=== PATIENT | female | born 1970 | race Caucasian/White ===

== ENCOUNTER → 2020-01-14 09:22 | Outpatient (CLI) | payer BC, OTHER, SELFPAY ==
--- NOTE | ~2020-01-14 | MM_ITS ---
EXAMINATION: MM screening meghann BI w ivy HISTORY: Screening mammogram TECHNIQUE: Craniocaudal and mediolateral oblique 3-D tomosynthesis images were obtained and synthetic 2-D images were generated. CAD analysis was submitted and interpreted. COMPARISON: 04/30/2018 bilateral digital screening mammogram BREAST PARENCHYMAL COMPOSITION: There are scattered areas of fibroglandular density. FINDINGS: There is no evidence of suspicious mass, calcification, or architectural distortion to sugg est malignancy in either breast. There has been no suspicious interval change. IMPRESSION: 1. No mammographic evidence of malignancy. 2. Recommend routine screening mammography in one year. BI-RADS Category 1: Negative Reviewed, dictated and finalized at location A. OVEN MASON
== END ==
PROVIDERS: PCP Nurse Practitioner Family; Visit Provider Nurse Practitioner
DX: Z12.31 Encounter for screening mammogram for malignant neoplasm of breast (principal)
CPT/HCPCS: 77063; 77067

== ENCOUNTER → 2020-01-25 13:32 | Outpatient (REF) | payer BC, OTHER, SELFPAY | LOC: ANHLAB 13:32 | PROVIDERS: PCP Nurse Practitioner Family; Visit Provider Nurse Practitioner Family | DX: D49.2 Neoplasm of unspecified behavior of bone, soft tissue, and skin (principal) | CPT/HCPCS: 88305 ==

== ENCOUNTER 2021-10-16 10:35 | Outpatient (CLI) | payer BC, SELFPAY ==
--- NOTE | ~2021-10-16 | XR_ITS ---
XR knee RT 3V 10/16/2021 11:22 Indication: Right knee pain Procedure: 3 views right knee Comparison: 02/23/2014 Findings: No fracture, subluxation or dislocation. No significant joint effusion. No foreign bodies. No joint space narrowing. Impression: 1: No significant bone or joint abnormality. Reviewed, dictated and finalized at location B. TENANCE MANAGER Impression: 1: No significant bone or joint abnormality.
--- NOTE | ~2021-10-16 | US_ITS ---
EXAMINATION:US venous doppler LE RT INDICATION:Leg pain and swelling TECHNIQUE: Multiple grayscale, color flow and Doppler images of the right lower extremity deep venous systems were obtained and reviewed. COMPARISON:No prior studies for comparison. FINDINGS: The common femoral, superficial femoral and popliteal veins demonstrate normal respiratory variation, augmentation and compressibility. Color flow is also seen within the posterior tibial, pe roneal, greater saphenous and profunda veins. IMPRESSION: 1: No lower extremity deep venous thrombosis. Reviewed, dictated and finalized at location B. ING INSPECTOR
== END 2021-10-16 10:36 | disposition home or self-care (01) ==
LOC: ANHIMG 10:51
PROVIDERS: PCP Nurse Practitioner Family; Visit Provider Nurse Practitioner Family
DX: M25.461 Effusion, right knee (principal); Z86.711 Personal history of pulmonary embolism; Z86.718 Personal history of other venous thrombosis and embolism; S89.91XA Unspecified injury of right lower leg, initial encounter
CPT/HCPCS: 73562; 93971

== ENCOUNTER 2022-07-24 10:19 | Emergency (ER) | payer OTHER, SELFPAY ==
--- NOTE | 2022-07-24 10:36 | ED.URI ---
HPI - URI/Sore Throat General Chief Complaint: Upper Respiratory Infection Stated Complaint: Sore Throat,Body Aching Time Seen by Provider: 07/24/22 10:36 Source: patient Mode of arrival: ambulatory Limitations: no limitations History of Present Illness HPI Narrative: Ms. Villeda is a 51-year-old female patient presenting to the clinic today with complaints of low-grade fever, chills, sore throat, fatigue, nasal congestion, and body aches x1 day. She reports no known exposure to anybody with COVID, flu, or strep. 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 MD elicited complaint: sore throat, nasal congestion and other (Body aches) Related Data Home Medications Medication Instructions Recorded Confirmed dextroamphetamine-amphetamine 20 20 mg PO DAILY 01/25/20 07/24/22 mg tablet (Adderall) oxybutynin chloride 5 mg tablet 5 mg PO DAILY 07/24/22 07/24/22 Allergies Allergy/AdvReac Type Severity Reaction Status Date / Time No Known Allergies Allergy Mild Verified 07/24/22 10:33 Review of Systems Review of Systems: Pertinent positives per HPI. Patient denies any fever, chills, rash, headache, visual changes, dizziness, cough, shortness of breath, chest pain, palpitations, nausea, vomiting, diarrhea, constipation, abdominal pain, or any urinary issues. PMFSH Past Medical History Medical History History of asthma Surgical History Surgical History History of ankle surgery Family History Family History Grandparent Diabetes mellitus Other Family history of malignant neoplasm of skin Social History Social History Smoking status: Former smoker Alcohol intake: never Comments At the time of my signature, I reviewed and agree with the nursing past medical, surgical, social, and family history. There is no relevant family history pertinent to the patient complaint. Exam Narrative: General: Well-developed, well nourished, in no apparent distress Head: Normocephalic, atraumatic Eyes: Pupils equally round and reactive to light bilaterally, EOM intact, sclera and conjunctive clear, no discharge, lids normal Ears: TMs intact and clear, ear canals clear, no drainage, grossly hearing normal. Nose: Nares patent, clear nasal discharge, no inflammation, no sinus tenderness. Mouth: Oral pharynx without lesions or masses, good dentition, MMM. Oropharynx red, postnasal drip Neck: Supple, trachea midline, no enlargement of anterior or posterior cervical nodes, no thyroid masses or goiter palpable. Cardio: Regular rate and rhythm, s1 and s2 normal, no murmur appreciated. Resp: Clear to auscultation bilaterally, no rhonchi, rales, wheezing or rubs Course Course Emergency Course: Portions of this record may have been created with voice recognition software. Level of Care: Express Care Visit Vital Signs Vital signs: Vital signs reviewed MDM - URI/Sore Throat MDM Narrative Medical decision making narrative: At the time of visit patient is resting comfortably on the exam table. COVID testing and influenza testing was performed and was negative in the clinic today. I suspect the patient has viral syndrome/upper respiratory infection likely due to COVID. Supportive measures were discussed with the patient she voiced understanding of discharge instructions and agrees to treatment plan recommend retesting for COVID in 48 hours as her test here today was negative but she is only had 1 day of symptoms. Work note was given. Differential Diagnosis Differential diagnosis: Likely upper respiratory infection, otitis media, sinusitis, viral infection, bronchitis, influenza, pharyngitis and other (COVID) Discharge Plan Discharge Clinical Impression: Viral syndrome, Acute upper respiratory
[2022-07-24 10:41] VITALS: BP 106/69; PULSE 92; RESP 20; TEMP 37.9; O2SAT 98
== END 2022-07-24 11:20 | disposition home or self-care (01) ==
PROVIDERS: Emergency Provider Nurse Practitioner Family; PCP Nurse Practitioner Family
DX: J06.9 Acute upper respiratory infection, unspecified (principal); B34.9 Viral infection, unspecified; J45.909 Unspecified asthma, uncomplicated; Z87.891 Personal history of nicotine dependence; Z20.822 Contact with and (suspected) exposure to COVID-19
CPT/HCPCS: 87081; 87147; 87426; 87804; 99213; C9803; G0463

== ENCOUNTER → 2022-12-10 10:16 | Outpatient (CLI) | payer OTHER, SELFPAY ==
--- NOTE | ~2022-12-10 | MM_ITS ---
EXAMINATION: MM screening meghann BI w ivy HISTORY: Screening mammogram TECHNIQUE: Craniocaudal and mediolateral oblique 3-D tomosynthesis images were obtained and synthetic 2-D images were generated. CAD analysis was submitted and interpreted. COMPARISON: 01/14/2020, 04/30/2018 bilateral screening mammogram examinations BREAST PARENCHYMAL COMPOSITION: There are scattered areas of fibroglandular density. FINDINGS: There is no evidence of suspicious mass, calcification, or architectural distortion to sugg est malignancy in either breast. There has been no suspicious interval change. IMPRESSION: 1. No mammographic evidence of malignancy. 2. Recommend routine screening mammography in one year. BI-RADS Category 1: Negative Reviewed, dictated and finalized at location A. N PIPE MAKER METAL
== END ==
PROVIDERS: PCP Nurse Practitioner Family; Visit Provider Nurse Practitioner Family
DX: Z12.31 Encounter for screening mammogram for malignant neoplasm of breast (principal)
CPT/HCPCS: 77063; 77067

== ENCOUNTER 2023-01-22 00:03 | Emergency (ER) | payer OTHER, SELFPAY ==
--- NOTE | ~2023-01-22 | CT_ITS ---
Non-contrast CT scan of the Abdomen and Pelvis Clinical indication: Kidney stone Technique: 2.5 mm axial scans were obtained through the abdomen and pelvis without intravenous or or al contrast. Dose reduction technique was used on this scan by utilizing automated exposure control a nd iterative reconstruction technique. The dose-length product (DLP) was 530.79 mGy-cm. Findings: Images through the lung bases reveal no abnormalities. There is no evidence of renal or ureteral calculi. The kidneys and the ureters are nondilated. The liver, spleen, pancreas, gallbladder, and adrenals appear normal. There is no aortic aneurysm. There is no evidence of bowel obstruction. Images through the pelvis were performed. There is no evidence of ascites or lymphadenopathy. Urinary bladder unremarkable. No adnexal mass evident. There is probable mild fluid distention of the right iliopsoas bursa along the course of the tendon, most notable just posterior to the common femoral ves sels (axial images [id number]). Impression: Probable right iliopsoas bursitis. No other significant findings. Reviewed, dictated and finalized at [facility]. OR INTEGRATION ARCHITECT Impression: Probable right iliopsoas bursitis. No other significant findings.
--- NOTE | ~2023-01-22 | XR_ITS ---
AP and oblique views of the right ribs Clinical History: Pain Findings: No rib fracture is seen. Osseous alignment is anatomic. Lungs are clear, without focal cons olidation or pleural effusion. Cardiomediastinal contour is within normal limits. Soft tissues are un remarkable. Impression: No rib fracture is seen. Reviewed, dictated and finalized at [facility]. ARCH PHYSICIAN Impression: No rib fracture is seen.
--- NOTE | ~2023-01-22 | XR_ITS ---
Right Knee Technique: AP, lateral, and oblique views were obtained. Clinical History: Pain Findings: No fracture or dislocation is seen. Osseous alignment is anatomic. Joint spaces are preserv ed without degenerative or erosive change. Soft tissues are unremarkable. No joint effusion is seen. Impression: Unremarkable right knee radiographs. Reviewed, dictated and finalized at [facility]. MA PROGRAM MANAGER Impression: Unremarkable right knee radiographs.
[2023-01-22 00:07] VITALS: BP 119/96; PULSE 102; RESP 14; TEMP 36.6; O2SAT 100
--- NOTE | 2023-01-22 03:15 | ED.GENADULT ---
HPI - General Adult General Chief complaint: Unspecified Stated complaint: Rib pain Time Seen by Provider: 01/22/23 03:07 History of Present Illness HPI narrative: A 52-year-old female presenting to ED with a chief complaint of right flank pain. Says that it started 2 days ago, is sharp nonradiating and 5/10 in intensity. It comes and goes depending on how she moves. She says she has felt this before when she felt a rib pop out of place. Worse with movement no alleviating factors. She has not taken anything for pain control. She denies fever, chills, urinary symptoms or history of kidney stones. Denies any trauma. Patient does use marijuana on a daily basis. Patient's 2nd complaint is right knee pain. When she was at work she got up from a chair and felt a pop in her knee and now has sharp pain on the medial aspect. She has not noted any swelling and has been able to ambulate. Related Data Home Medications Medication Instructions Recorded Confirmed dextroamphetamine-amphetamine 20 20 mg PO DAILY 01/25/20 07/24/22 mg tablet (Adderall) oxybutynin chloride 5 mg tablet 5 mg PO DAILY 07/24/22 07/24/22 Allergies Allergy/AdvReac Type Severity Reaction Status Date / Time No Known Allergies Allergy Mild Verified 07/24/22 10:33 [facility] Past Medical History Medical History History of asthma Surgical History Surgical History History of ankle surgery Family History Family History Grandparent Diabetes mellitus Other Family history of malignant neoplasm of skin Social History Social History (Updated 01/22/23 @ 03:16 by Arjun Faulkner MD) Social History: Daily marijuana use Smoking status: Former smoker Alcohol intake: never Exam Narrative: APPEARANCE: patient is rolling back and forth on the stretcher. She does not stop moving. Head: atraumatic. EYES: EOMI, NOSE: Atraumatic NECK: Trachea midline RESPIRATORY: No increased rate of breathing CARDIOVASCULAR: RRR, ABDOMINAL: Abdomen is soft nontender with no guarding or rebound. There is no right CVA tenderness. No specific point tenderness over the ribcage. MUSCULOSKELETAl: Exam of the knee reveals no swelling, no redness, no warmth. The patient states that hurts to move but while she is rolling back and forth she is continuously moving her leg. NEURO: Alert. Moving 4/4 extremities SKIN:: Warm, dry. Normal color PSYCHIATRIC: Normal affect Course Vital Signs Vital signs: Vital Signs Temperature 97.8 F 01/22/23 00:07 Pulse Rate 102 H 01/22/23 00:07 Respiratory Rate 14 01/22/23 00:07 Blood Pressure 119/96 H 01/22/23 00:07 Pulse Oximetry 100 01/22/23 00:07 Oxygen Delivery Room Air 01/22/23 00:07 Temperature 97.8 F 01/22/23 00:07 Pulse Rate 102 H 01/22/23 00:07 Respiratory Rate 14 01/22/23 00:07 Blood Pressure 119/96 H 01/22/23 00:07 Pulse Oximetry 100 01/22/23 00:07 Oxygen Delivery Room Air 01/22/23 00:07 Medical Decision Making [facility] Narrative Medical decision making narrative: -Presentation: This is a 52-year-old female presenting ED with right flank and right knee pain. The patient is acting bizarrely when I enter the room and is rolling back and forth and not sitting still. I believe there may be a psychiatric or possible substance related component to her presentation. 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 She lives with her and children. -External Chart Review: None -Hx from independent Sources: none -Discussion of Management/Consultants: none -Independent interpretation of studies: x-ray of the knee did not reveal any obvious fractures. Rib x-ray
[2023-01-22] MEDS: ACETAMINOPHEN 500 MG TABLET 1000 MG PO (03:27)
[2023-01-22] MEDS: IBUPROFEN 400 MG TABLET 800 MG PO (03:28)
[2023-01-22] MEDS: SODIUM CHLORIDE 0.9% IV 1,000 ML 999 ML IV CONT (03:29)
[2023-01-22 03:30] LABS: Basophils Absolute Auto 0.1 K/mm3 (0.0-0.1); Basophils Percent Auto 0.3 % (0.2-1.2); Eosinophils Absolute Auto 0.3 K/mm3 (0-0.3); Eosinophils Percent Auto 1.7 % (0-4.4); Hematocrit 35.9 % (37.0-47.0); Hemoglobin 11.4 g/dL (12.0-15.0); Immature Granulocyte Absolute 0.06 K/mm3 (0.00-0.031); Immature Granulocyte Percent A 0.4 % (0-0.5); Lymphocytes Absolute Auto 3.53 K/mm3 (0.9-3.2); Lymphocytes Percent Auto 23.5 % (18.3-44.2); Mean Corpuscular HGB Conc 31.8 g/dl (32-36); Mean Corpuscular Hemoglobin 26.9 pg (26-34); Mean Corpuscular Volume 84.7 fl (80-100); Mean Platelet Volume 10.5 fl (7.4-10.4); Monocytes Percent Auto 6.6 % (2.6-8.5); Neutrophils Absolute Auto 10.2 K/mm3 (1.3-6.7); Neutrophils Percent Auto 67.5 % (45.5-73.1); Platelet Count Result 324 k/mm3 (150-375); Red Blood Count 4.24 M/mm3 (4.2-5.4); Red Cell Distribution Width 14.6 % (11.5-14.5)
[2023-01-22 03:40] LABS: Lipase 127 U/L (23-300); Magnesium 2.1 mg/dL (1.6-2.3)
[2023-01-22 03:42] LABS: Alanine Aminotransferase 18 U/L (6-35); Albumin Level 4.5 g/dL (3.5-5.1); Alkaline Phosphatase 105 U/L (38-126); Anion Gap 5 mmol/L (8-16); Aspartate Amino Transferase 26 U/L (14-36); Bilirubin,Total 0.4 mg/dL (0.2-1.3); Blood Urea Nitrogen 20 mg/dL (7-17); Carbon Dioxide 30 mmol/L (22-30); Chloride 99 mmol/L (98-107); Estimated CRCL calculation 88 ml/min; Estimated Glomerular Filt Rate > 60; Glucose 109 mg/dL (65-110); Potassium 4.2 mmol/L (3.4-5.0); Sodium 134 mmol/L (137-145)
[2023-01-22 04:05] LABS: Appearance Urine Clear (Clear); Bilirubin Urine Negative (Negative); Blood Urine Negative (Negative); Color Urine Yellow (Yellow); Glucose Urine UA Negative (Negative); Ketones Urine Negative (Negative); Leukocyte Esterase Ur Negative LEU/UL (Negative); Nitrate Urine Negative (Negative); Protein Urine Negative (Negative); Specific Grav Ur 1.009 (1.001-1.035); Urobilinogen Urine 0.2 mg/dL (<2.0); pH Urine 5.5 (5.0-9.0)
[2023-01-22 04:08] LABS: Add Urine Microscopic? NO
[2023-01-22 04:51] LABS: Amphetamine Screen Urine Positive (Negative); Barbiturate Screen Urine Negative (Negative); Benzodiazepines Screen Urine Positive (Negative); Cannabinoid Screen Urine Positive (Negative); Cocaine Screen Urine Negative (Negative); Methadone Screen Urine Negative (Negative); Opiate Screen Urine Negative (Negative); Phencyclidine Screen Urine Negative (Negative)
== END 2023-01-22 05:58 | disposition home or self-care (01) ==
PROVIDERS: Emergency Provider Emergency Medicine; PCP Nurse Practitioner Family
DX: F19.99 Other psychoactive substance use, unspecified with unspecified psychoactive substance-induced disorder (principal); M25.561 Pain in right knee; R07.81 Pleurodynia; J45.909 Unspecified asthma, uncomplicated; Z87.891 Personal history of nicotine dependence
CPT/HCPCS: 36415; 71100; 73564; 74176; 80053; 80307; 81003; 83690; 83735; 85025; 96360; 96361; 99284; A9270; J7030

== ENCOUNTER 2024-01-12 19:10 | Emergency (ER) | payer OTHER, SELFPAY ==
--- NOTE | ~2024-01-12 | XR_ITS ---
EXAM: XR hip RT 2V w AP pelvis DATE: 01/12/2024 19:37 HISTORY: rt posterior hip pain s/p fall 3 days ago . COMPARISON: None available CT abdomen pelvis 01/22/2023. FINDINGS: Decreased mineralization. No fracture or dislocation. No lytic or blastic lesion. Mild courtney ateral hip degenerative change. No erosion or periosteal change. Soft tissues within normal limits. IMPRESSION: No acute osseous finding in the pelvis or right hip. Reviewed, dictated and finalized at location K. SIONAL CAREGIVER
[2024-01-12 19:20] VITALS: BP 125/81; PULSE 89; RESP 16; TEMP 36.6; O2SAT 99
--- NOTE | 2024-01-12 19:23 | ED.FALL ---
HPI - Fall General Chief Complaint: Fall Stated Complaint: Fall Time Seen by Provider: 01/12/24 19:20 Source: patient Mode of arrival: ambulatory Limitations: no limitations History of Present Illness HPI Narrative: Ivette is a 53-year-old female patient presenting to the clinic today with complaints of right-sided hip/glut pain. States that she fell on Thursday night and landed on her bottom on some stairs. Patient was intoxicated at that time. Is having pain to the right glute radiating into the thigh down the leg. Is having a lot of pain with ambulation. Related Data Home Medications Medication Instructions Recorded Confirmed cyclobenzaprine 10 mg tablet 10 mg PO PRN PRN Muscle Spasm 01/12/24 01/12/24 dextroamphetamine-amphetamine 30 1 tablet PO BID 01/12/24 01/12/24 mg tablet ibuprofen 800 mg tablet 800 mg PO TID PRN Pain 01/12/24 01/12/24 Allergies Allergy/AdvReac Type Severity Reaction Status Date / Time No Known Allergies Allergy Mild Verified 01/12/24 19:14 Review of Systems Review of Systems: Pertinent positives per HPI. Patient denies any fever, chills, rash, headache, visual changes, dizziness, cough, runny nose, sore throat, shortness of breath, chest pain, palpitations, nausea, vomiting, diarrhea, constipation, abdominal pain, or any urinary issues. PMFSH Past Medical History Medical History History of asthma Surgical History Surgical History History of ankle surgery Family History Family History Grandparent Diabetes mellitus Other Family history of malignant neoplasm of skin Social History Social History Social History: Daily marijuana use Smoking status: Former smoker Alcohol intake: never Comments At the time of my signature, I reviewed and agree with the nursing past medical, surgical, social, and family history. There is no relevant family history pertinent to the patient complaint. Exam Narrative: General: Well-developed, well nourished, in no apparent distress Head: Normocephalic, atraumatic. Cardio: Regular rate and rhythm, s1 and s2 normal, no murmur appreciated. Resp: Clear to auscultation bilaterally, no rhonchi, rales, wheezing or rubs. Musculoskeletal: No deformity, tender to palpation over the right lower lateral glut with bruising noted, pain radiating into the thigh down the leg, limited range of motion due to pain, cautious gait, muscle strength strong and equal, peripheral pulse strong, no edema, no cyanosis Course Course Emergency Course: Portions of this record may have been created with voice recognition software. Level of Care: Express Care Visit Vital Signs Vital signs: Vital Signs Temperature 36.6 C 01/12/24 19:20 Pulse Rate 89 01/12/24 19:20 Respiratory Rate 16 01/12/24 19:20 Blood Pressure 125/81 01/12/24 19:20 Pulse Oximetry 99 01/12/24 19:20 Oxygen Delivery Room Air 01/12/24 19:20 Temperature 36.6 C 01/12/24 19:20 Pulse Rate 89 01/12/24 19:20 Respiratory Rate 16 01/12/24 19:20 Blood Pressure 125/81 01/12/24 19:20 Pulse Oximetry 99 01/12/24 19:20 Oxygen Delivery Room Air 01/12/24 19:20 Vital signs reviewed MDM - Fall MDM Narrative Medical decision making narrative: At the time of visit patient is resting comfortably on the exam table. Patient appears to be nontoxic. Diagnostics: X-ray of the right hip and pelvis was performed and there was no sign of fracture or malalignment. Plan: I suspect patient has a contusion/soft tissue swelling to the right glut. Work note was given. supportive measures were discussed with the patient and they voiced understanding discharge instructions and agrees to treatment plan. Return precautions revi
== END 2024-01-12 19:51 | disposition home or self-care (01) ==
PROVIDERS: Emergency Provider Nurse Practitioner Family; PCP Nurse Practitioner Family
DX: S30.0XXA Contusion of lower back and pelvis, initial encounter (principal); W10.9XXA Fall (on) (from) unspecified stairs and steps, initial encounter; J45.909 Unspecified asthma, uncomplicated; F12.90 Cannabis use, unspecified, uncomplicated; Z87.891 Personal history of nicotine dependence
CPT/HCPCS: 73502; 99213; G0463

== ENCOUNTER 2024-06-29 10:39 | Outpatient (CLI) | payer BC, SELFPAY ==
--- NOTE | ~2024-06-29 | MM_ITS ---
EXAMINATION: MM screening meghann BI w ivy HISTORY: Screening TECHNIQUE: Craniocaudal and mediolateral oblique 3-D tomosynthesis images were obtained and synthetic 2-D images were generated. CAD analysis was submitted and interpreted. COMPARISON: Comparison to multiple prior studies sequentially, with oldest reviewed study dated 04/30. BREAST PARENCHYMAL COMPOSITION: Not dense: There are scattered areas of fibroglandular density. FINDINGS: There is no evidence of suspicious mass, calcification, or architectural distortion to sugg est malignancy in either breast. There has been no suspicious interval change. IMPRESSION: 1. No mammographic evidence of malignancy. 2. Recommend routine screening mammography in one year. BI-RADS Category 1: Negative Reviewed, dictated and finalized at location B.
== END 2024-06-29 10:40 ==
LOC: MICIMG 10:42
PROVIDERS: PCP Nurse Practitioner Family; Visit Provider Nurse Practitioner Women's Health
DX: Z12.31 Encounter for screening mammogram for malignant neoplasm of breast (principal)
CPT/HCPCS: 77063; 77067